=== PATIENT | female | born 1950 | race Two or more races ===

== ENCOUNTER 2020-12-08 11:18 | Outpatient (CLI) | payer OTHER | END 2020-12-08 13:57 | disposition home or self-care (01) | LOC: SONOGRAMA 11:18 | PROVIDERS: ATTEND Pathology Anatomic Pathology & Clinical Pathology | DX: E07.89 Other specified disorders of thyroid (principal); D34 Benign neoplasm of thyroid gland; E04.8 Other specified nontoxic goiter ==